=== PATIENT | female | born 1930 | race Caucasian/White ===

== ENCOUNTER 2021-03-18 13:09 | Inpatient (IN) | payer MEDICARE, OTHER ==
[~2021-03-18] VITALS: Ht 157.5 cm; Wt 70.0 kg
[2021-03-18] MEDS ORDERED: normal saline 1000ML IV soln IVB ONE (14:05)
[2021-03-18] MEDS ORDERED: ondansetron/PF 4mg/2ml inj IV ONE (14:05)
[2021-03-18] MEDS ORDERED: morphine 4 MG/ML inj SYRINge IV ONE (14:20)
[2021-03-18 14:38] LABS: BASOPHILS % (AUTO) 0.2 % (0-1); EOSINOPHILS % (AUTO) 0 % (0-6); HEMATOCRIT 41.9 % (35.0-45.0); LYMPHOCYTES # (AUTO) 0.6 X10'3 (1.1-4.8); LYMPHOCYTES % (AUTO) 3.5 % (21-51); MEAN CORPUSCULAR HEMOGLOBIN 30.7 PG (27.0-31.0); MEAN CORPUSCULAR HGB CONC 33.5 g/dL (33.0-36.5); MEAN CORPUSCULAR VOLUME 91.7 FL (78-98); MEAN PLATELET VOLUME 7.4 FL (7.4-10.4); MONOCYTES # (AUTO) 0.3 X10'3 (0-0.9); MONOCYTES % (AUTO) 1.9 % (2-12); NEUTROPHILS # (AUTO) 16.2 X10'3 (1.8-7.7); NEUTROPHILS % (AUTO) 94.4 % (42-75); PLATELET COUNT 420 X10'3 (140-440); RED BLOOD COUNT 4.57 X10'6 (4.20-5.60); RED CELL DISTRIBUTION WIDTH 13.8 % (11.5-14.5); WHITE BLOOD COUNT 17.2 X10'3 (4.5-11.0)
[2021-03-18 14:49] LABS: ALANINE AMINOTRANSFERASE 28 U/L (12-78); ALBUMIN 3.5 G/DL (3.4-5.0); ALBUMIN/GLOBULIN RATIO 0.9 (1.1-1.5); ALKALINE PHOSPHATASE 114 IU/L (46-116); ANION GAP 13 (8-16); ASPARTATE AMINO TRANSFERASE 23 U/L (10-37); BILIRUBIN,TOTAL 0.9 MG/DL (0.1-1.0); BLOOD UREA NITROGEN 21 MG/DL (7-18); BUN/CREATININE RATIO 20.8 (6.6-38.0); CALCIUM 11.3 MG/DL (8.5-10.1); CHLORIDE 101 MMOL/L (99-107); CREATININE 1.01 MG/DL (0.40-0.90); GLUCOSE 174 MG/DL (70-104); LIPASE 117 U/L (73-393); SODIUM 139 MMOL/L (135-145); TOTAL PROTEIN 7.3 G/DL (6.4-8.2); eGFR 52 ML/MIN
[2021-03-18 14:56] LABS: POTASSIUM 2.7 MMOL/L (3.5-5.1)
[2021-03-18] MEDS ORDERED: piperacillin/tazo 3.375gm/50ml 50 ML IV ONE (15:00)
[2021-03-18] MEDS ORDERED: iohexol 300mg/ml 100ml inj. ONE (15:11)
[2021-03-18] MEDS: potassium CL 10mEq/100ml bag 100 ML IV SCH ×2 (15:28→18:07)
--- NOTE | 2021-03-18 15:50 | NUR ---
PT TO CT SCAN VIA [facility]
[2021-03-18] MEDS ORDERED: glycopyrrolate 0.2mg/ml inj IV ONE (16:00)
[2021-03-18 16:53] LABS: C DIFF ANTIGEN POSITIVE (NEGATIVE); C DIFF SPECIMEN=DIARRHEA? ACCEPTABLE; C DIFFICILE TOXINS A&B POSITIVE (Neg)
[2021-03-18] MEDS ORDERED: vancomycin 125mg/5ml ORAL solution 5ml UD bottle PO ONE (17:44)
[2021-03-18] MEDS ORDERED: HYDROcodone/acetaminophen 5mg/325mg tablet PO PRN (18:20)
[2021-03-18] MEDS: potassium Cl 20mEq in NS 1,000 ML IV SCH (18:20)
[2021-03-18] MEDS ORDERED: acetaminophen 325mg tablet PO PRN ×2 (18:20)
[2021-03-18] MEDS ORDERED: ondansetron/PF 4mg/2ml inj IV PRN (18:20)
[2021-03-18] MEDS ORDERED: magnesium hydroxide 30ml (MOM) UD suspension PO PRN (18:20)
[2021-03-18] MEDS ORDERED: morphine 2 MG/ML inj. syringe IV PRN ×2 (18:20)
[2021-03-18] MEDS ORDERED: mag hydrox/Alum hydrox/simeth 30ml oral suspension PO PRN (18:20)
[2021-03-18] MEDS ORDERED: AMLO10TA13 PO (19:17)
[2021-03-18] MEDS ORDERED: ASPI-611 PO (19:17)
[2021-03-18] MEDS ORDERED: HYDR-4069 PO (19:17)
[2021-03-18] MEDS ORDERED: ATOR10TA70 PO (19:17)
[2021-03-18] MEDS ORDERED: ALBU18HF2 INH (19:17)
[2021-03-18] MEDS ORDERED: FLUT12AE4 IH (19:17)
[2021-03-18] MEDS ORDERED: FAMO20TA8 PO (19:17)
[2021-03-18] MEDS ORDERED: CALC-855 PO (19:17)
[2021-03-18] MEDS ORDERED: OMEP-50 PO (19:17)
[2021-03-18] MEDS ORDERED: MULT-1085 PO (19:24)
[2021-03-18 19:29] LABS: CLARITY,URINE CLEAR (Clear); COLOR,URINE DARK YELLOW (Yellow); PH,URINE 6.5 (4.8-8.0); UA COLLECTION TYPE URINAL
[2021-03-18 19:30] LABS: GLUCOSE, URINE NEGATIVE (Neg); KETONES,URINE NEGATIVE (Neg); LEUKOCYTE ESTERASE ,URINE TRACE (Neg); NITRITES, URINE NEGATIVE (Neg); OCCULT BLOOD,URINE TRACE-INTACT (Neg); PROTEIN,URINE TRACE mg/dl (Neg); UROBILINOGEN,URINE 0.2 E.U/dL (0.2-1.0)
[2021-03-18 19:31] LABS: BACTERIA,URINE FEW /HPF (Neg); SQUAMOUS EPITHELIAL CELL,UR FEW /LPF (FEW); WBC,URINE 0-4 /HPF (0-4)
[2021-03-18] MEDS: docusate sod 100mg capsule PO SCH (19:48)
--- NOTE | 2021-03-19 01:10 | NUR ---
PT SPO2 [id number]%.PLACED PT ON NC 2L. PT STATES WEARS CPAP AT HOME FOR SLEEP APNEA.
[2021-03-19 01:42] LABS: BASOPHILS % (AUTO) 0.1 % (0-1); EOSINOPHILS % (AUTO) 0 % (0-6); HEMATOCRIT 35.7 % (35.0-45.0); LYMPHOCYTES # (AUTO) 0.5 X10'3 (1.1-4.8); LYMPHOCYTES % (AUTO) 2.3 % (21-51); MEAN CORPUSCULAR HEMOGLOBIN 30.5 PG (27.0-31.0); MEAN CORPUSCULAR HGB CONC 33.7 g/dL (33.0-36.5); MEAN CORPUSCULAR VOLUME 90.5 FL (78-98); MEAN PLATELET VOLUME 7.1 FL (7.4-10.4); MONOCYTES # (AUTO) 1.5 X10'3 (0-0.9); MONOCYTES % (AUTO) 6.6 % (2-12); NEUTROPHILS # (AUTO) 20.5 X10'3 (1.8-7.7); PLATELET COUNT 352 X10'3 (140-440); RED BLOOD COUNT 3.94 X10'6 (4.20-5.60); RED CELL DISTRIBUTION WIDTH 13.9 % (11.5-14.5); WHITE BLOOD COUNT 22.5 X10'3 (4.5-11.0)
[2021-03-19 01:47] LABS: ALBUMIN 2.6 G/DL (3.4-5.0); ANION GAP 10 (8-16); BLOOD UREA NITROGEN 21 MG/DL (7-18); BUN/CREATININE RATIO 20.4 (6.6-38.0); CALCIUM 9.2 MG/DL (8.5-10.1); CHLORIDE 107 MMOL/L (99-107); CREATININE 1.03 MG/DL (0.40-0.90); GLUCOSE 129 MG/DL (70-104); POTASSIUM 3.7 MMOL/L (3.5-5.1); SODIUM 141 MMOL/L (135-145); TOTAL CARBON DIOXIDE 24.5 MMOL/L (24-32); eGFR 50 ML/MIN
[2021-03-19] MEDS: vancomycin 125mg/5ml ORAL solution 5ml UD bottle PO SCH ×3 (03:06→20:42)
[2021-03-19 03:49] LABS: PLATELET ESTIMATE NORMAL; TOTAL CELLS COUNTED 100
[2021-03-19] MEDS: potassium Cl 20mEq in NS 1,000 ML IV SCH ×2 (05:17→17:51)
[2021-03-19] MEDS: enoxaparin 40mg/0.4ml syringe SUBCUT SCH (11:10)
[2021-03-19] MEDS: docusate sod 100mg capsule PO SCH ×2 (11:10→20:00)
--- NOTE | 2021-03-19 12:48 | NUR ---
noe [phone]
--- NOTE | 2021-03-19 13:49 | NUR ---
PT INCONT OF LARGE LIQUID STOOL . PT WAS CLEANED, LINEN CHANGED.
[2021-03-19] MEDS: hydrALAZINE 25 MG tablet PO SCH ×2 (15:11→21:31)
--- NOTE | 2021-03-19 18:15 | NUR ---
UP TO COMMODE STOOL X1, MODERATED AMT WATERY BROWN.
--- NOTE | 2021-03-19 18:51 | NUR ---
PT VANCOMYCIN FOR 0800 AND 1400 REMAINS UNCHARTED. UNABLE TO CLARIFY WITH DAYSHIFT NURSE DUE TO NURSE LEAVING FOR THE DAY.
[2021-03-19] MEDS ORDERED: FLUTICASONE IH SCH (20:00)
[2021-03-19] MEDS ORDERED: SALMETEROL IH SCH (20:00)
[2021-03-19] MEDS: famotidine 20mg tablet PO SCH (20:42)
[2021-03-19] MEDS: lactobacillus rhamnosus 10,000 MMU CELLS/CAPSULE PO SCH (20:42)
--- NOTE | 2021-03-19 21:46 | NUR ---
pt given hs rx. pt with no needs. Dressing to right medial lower leg taken off and small ulceratea area noted with minimal drainage to dressing. Area cleaned and 2x2 dressing taped in place. Pt given warm blanket. Awaiting ipa.
--- NOTE | 2021-03-19 22:12 | NUR ---
PT WITH 2CM ULCERATED SHALLOW AREA TO THE RIGHT MEDIAL LOWER LEG. STATES KESHA MAN HAS BEEN DEALING WITH THES. REPORTS IT WAS SKIN CANCER AND IT WAS SURGICALLY REMOVED. SHE SEES WOUND CARE WEEKLY FOR MANAGEMENT AND DRESSING CHANGES. NEW DRESSING IN PLACE.
[2021-03-20] VITALS: BP 160/65
--- NOTE | 2021-03-20 | NUR ---
I have received report from MARCELLUS and had the opportunity to ask questions and assume patient care. RECEIVED PT FROM ER VIA [facility] FOLLOWING VERBAL REPORT. ASSUMED CARE OF PT WITH RN STUDENT BENI Cerrato
[2021-03-20] MEDS: vancomycin 125mg/5ml ORAL solution 5ml UD bottle PO SCH ×4 (02:06→21:04)
[2021-03-20] MEDS: potassium Cl 20mEq in NS 1,000 ML IV SCH ×3 (02:08→23:22)
--- NOTE | 2021-03-20 05:55 | NUR ---
Student documentation: I have reviewed and agree with all interventions, assessments performed and documented by BENI Florez Medication Administration: For this medication-pass time frame, all medication were reviewed, dispensed, administered and documented per hospital policy by BENI Cerrato
[2021-03-20 06:09] LABS: BASOPHILS % (AUTO) 0.2 % (0-1); EOSINOPHILS # (AUTO) 0.1 X10'3 (0-0.9); EOSINOPHILS % (AUTO) 0.4 % (0-6); HEMATOCRIT 33.5 % (35.0-45.0); HEMOGLOBIN 11.1 g/dl (12.0-16.0); LYMPHOCYTES # (AUTO) 1.2 X10'3 (1.1-4.8); LYMPHOCYTES % (AUTO) 8.9 % (21-51); MEAN CORPUSCULAR VOLUME 93.8 FL (78-98); MEAN PLATELET VOLUME 7.6 FL (7.4-10.4); MONOCYTES # (AUTO) 1.5 X10'3 (0-0.9); MONOCYTES % (AUTO) 10.7 % (2-12); NEUTROPHILS # (AUTO) 11.1 X10'3 (1.8-7.7); NEUTROPHILS % (AUTO) 79.8 % (42-75); PLATELET COUNT 319 X10'3 (140-440); RED BLOOD COUNT 3.57 X10'6 (4.20-5.60); RED CELL DISTRIBUTION WIDTH 14.4 % (11.5-14.5)
--- NOTE | 2021-03-20 06:21 | NUR ---
Problems reprioritized. Patient report given, questions answered & plan of care reviewed with ARI.
[2021-03-20 06:28] LABS: ALBUMIN 2.5 G/DL (3.4-5.0); ANION GAP 9 (8-16); BLOOD UREA NITROGEN 21 MG/DL (7-18); BUN/CREATININE RATIO 28.8 (6.6-38.0); CALCIUM 8.4 MG/DL (8.5-10.1); CHLORIDE 108 MMOL/L (99-107); CREATININE 0.73 MG/DL (0.40-0.90); GLUCOSE 87 MG/DL (70-104); POTASSIUM 3.8 MMOL/L (3.5-5.1); SODIUM 141 MMOL/L (135-145); TOTAL CARBON DIOXIDE 23.6 MMOL/L (24-32); eGFR 75 ML/MIN
--- NOTE | 2021-03-20 06:58 | NUR ---
Patient in room [facility]A. I have received report from MARIMAR QUINTERO & SUBHA BAZAN and had the opportunity to ask questions and assume patient care
[2021-03-20 08:00] VITALS: BP 147/70
[2021-03-20] MEDS: docusate sod 100mg capsule PO SCH ×2 (08:00→20:00)
[2021-03-20] MEDS ORDERED: VANC5VIA PO (09:18)
[2021-03-20] MEDS: enoxaparin 40mg/0.4ml syringe SUBCUT SCH (09:21)
[2021-03-20] MEDS: pantoprazole 40mg Tablet.DR PO SCH (09:21)
[2021-03-20] MEDS: calcium carbonate/vitamin D3 tablet PO SCH (09:21)
[2021-03-20] MEDS: multivitamins, therapeutics tablet PO SCH (09:21)
[2021-03-20] MEDS: atorvastatin 10mg tablet PO SCH (09:21)
[2021-03-20] MEDS: lactobacillus rhamnosus 10,000 MMU CELLS/CAPSULE PO SCH ×2 (09:22→21:03)
[2021-03-20] MEDS: aspirin 81mg, enteric-coated 1 TAB TABLET.DR PO SCH (09:22)
[2021-03-20] MEDS: amLODIPine 5mg tablet PO SCH (09:25)
[2021-03-20] MEDS: hydrALAZINE 25 MG tablet PO SCH ×3 (09:25→21:07)
[2021-03-20 11:00] VITALS: BP_SYST 148; BP_SYST 158; BP_SYST 161; BP_DIAS 100; BP_DIAS 61; BP_DIAS 72
--- NOTE | 2021-03-20 12:27 | NUR ---
Age screen: Pt admitted w/ diarrhea and abd pain w/ dx of C. Diff per EMR. Pt currently on full liquid diet w/ 25% of breakfast consumed today. No wt loss reported, no edema present. Per ERM, pt noted w/ 2 cm ulceration to R leg and pt states it was skin cancer that was removed and she currently sees Wound care weekly for it. Will continue to monitor for diet advancement. Addendum: 03/20/21 at [address] Amended: Links added.
--- NOTE | 2021-03-20 19:00 | NUR ---
Problems reprioritized. Patient report given, questions answered & plan of care reviewed with ELSA HUNTER RN.
--- NOTE | 2021-03-20 19:02 | NUR ---
Patient in room [facility]. I have received report from ARI MINAYA and had the opportunity to ask questions and assume patient care.
[2021-03-20 20:00] VITALS: BP 173/64
[2021-03-20] MEDS: famotidine 20mg tablet PO SCH (21:03)
[2021-03-20] MEDS ORDERED: guaiFENesin/codeine phos 10ml UD oral syrup PO PRN (21:30)
[2021-03-21] VITALS: BP 163/69
[2021-03-21] MEDS: vancomycin 125mg/5ml ORAL solution 5ml UD bottle PO SCH ×4 (02:35→20:24)
[2021-03-21] MEDS: potassium Cl 20mEq in NS 1,000 ML IV SCH ×2 (06:20→10:05)
--- NOTE | 2021-03-21 06:29 | NUR ---
Problems reprioritized. Patient report given, questions answered & plan of care reviewed with JADON RN.
--- NOTE | 2021-03-21 06:30 | NUR ---
Patient in room [facility]. I have received report from Nannette MINAYA and had the opportunity to ask questions and assume patient care.
[2021-03-21 07:05] LABS: ALBUMIN 2.8 G/DL (3.4-5.0); ANION GAP 11 (8-16); BLOOD UREA NITROGEN 11 MG/DL (7-18); BUN/CREATININE RATIO 17.2 (6.6-38.0); CALCIUM 8.6 MG/DL (8.5-10.1); CHLORIDE 107 MMOL/L (99-107); CREATININE 0.64 MG/DL (0.40-0.90); GLUCOSE 100 MG/DL (70-104); POTASSIUM 4.1 MMOL/L (3.5-5.1); SODIUM 138 MMOL/L (135-145); TOTAL CARBON DIOXIDE 20.1 MMOL/L (24-32); eGFR 87 ML/MIN
[2021-03-21 07:09] LABS: BASOPHILS % (AUTO) 0.2 % (0-1); EOSINOPHILS # (AUTO) 0.1 X10'3 (0-0.9); EOSINOPHILS % (AUTO) 0.8 % (0-6); HEMATOCRIT 33.7 % (35.0-45.0); HEMOGLOBIN 11.2 g/dl (12.0-16.0); LYMPHOCYTES # (AUTO) 1.1 X10'3 (1.1-4.8); LYMPHOCYTES % (AUTO) 7.5 % (21-51); MEAN CORPUSCULAR HEMOGLOBIN 30.8 PG (27.0-31.0); MEAN CORPUSCULAR HGB CONC 33.3 g/dL (33.0-36.5); MEAN CORPUSCULAR VOLUME 92.4 FL (78-98); MEAN PLATELET VOLUME 8.5 FL (7.4-10.4); MONOCYTES # (AUTO) 1.4 X10'3 (0-0.9); MONOCYTES % (AUTO) 9.6 % (2-12); NEUTROPHILS # (AUTO) 12.1 X10'3 (1.8-7.7); NEUTROPHILS % (AUTO) 81.9 % (42-75); PLATELET COUNT 290 X10'3 (140-440); RED BLOOD COUNT 3.65 X10'6 (4.20-5.60); RED CELL DISTRIBUTION WIDTH 14.6 % (11.5-14.5); WHITE BLOOD COUNT 14.7 X10'3 (4.5-11.0)
[2021-03-21 08:00] VITALS: BP 167/83
[2021-03-21] MEDS: docusate sod 100mg capsule PO SCH ×2 (08:00→20:00)
[2021-03-21] MEDS: pantoprazole 40mg Tablet.DR PO SCH (10:06)
[2021-03-21] MEDS: atorvastatin 10mg tablet PO SCH (10:06)
[2021-03-21] MEDS: calcium carbonate/vitamin D3 tablet PO SCH (10:07)
[2021-03-21] MEDS: hydrALAZINE 25 MG tablet PO SCH ×3 (10:07→20:38)
[2021-03-21] MEDS: lactobacillus rhamnosus 10,000 MMU CELLS/CAPSULE PO SCH ×2 (10:07→20:24)
[2021-03-21] MEDS: multivitamins, therapeutics tablet PO SCH (10:08)
[2021-03-21] MEDS: amLODIPine 5mg tablet PO SCH (10:10)
[2021-03-21] MEDS: enoxaparin 40mg/0.4ml syringe SUBCUT SCH (10:15)
[2021-03-21 11:00] VITALS: BP_SYST 116; BP_SYST 167; BP_DIAS 63; BP_DIAS 71
[2021-03-21 17:32] VITALS: BP_SYST 158; BP_SYST 168; BP_SYST 193; BP_DIAS 64; BP_DIAS 75; BP_DIAS 77
[2021-03-21 18:00] VITALS: BP 158/81
--- NOTE | 2021-03-21 18:55 | NUR ---
Patient in room [facility]. I have received report from Pio MINAYA and had the opportunity to ask questions and assume patient care.
--- NOTE | 2021-03-21 18:58 | NUR ---
Problems reprioritized. Patient report given, questions answered & plan of care reviewed with TRAM MINAYA.
[2021-03-21] MEDS: famotidine 20mg tablet PO SCH (20:24)
[2021-03-21] MEDS ORDERED: PERFLUTREN PROTEIN-A MICROSPHR (Optison) 0.22 MG/ML 3ML VIAL IV PRN (20:30)
[2021-03-21] MEDS ORDERED: furosemide 40mg/4ml inj IV ONE (20:35)
[2021-03-22] VITALS: BP_SYST 132; BP_SYST 154; BP_DIAS 57; BP_DIAS 75
[2021-03-22] MEDS: vancomycin 125mg/5ml ORAL solution 5ml UD bottle PO SCH ×3 (02:28→13:30)
[2021-03-22] MEDS ORDERED: guaiFENesin/codeine phos 10ml UD oral syrup PO PRN (04:50)
[2021-03-22 06:04] LABS: BASOPHILS % (AUTO) 0.3 % (0-1); EOSINOPHILS # (AUTO) 0.2 X10'3 (0-0.9); EOSINOPHILS % (AUTO) 2.5 % (0-6); HEMATOCRIT 32.3 % (35.0-45.0); HEMOGLOBIN 10.9 g/dl (12.0-16.0); LYMPHOCYTES # (AUTO) 1.4 X10'3 (1.1-4.8); LYMPHOCYTES % (AUTO) 18.5 % (21-51); MEAN CORPUSCULAR HEMOGLOBIN 30.7 PG (27.0-31.0); MEAN CORPUSCULAR HGB CONC 33.6 g/dL (33.0-36.5); MEAN CORPUSCULAR VOLUME 91.1 FL (78-98); MEAN PLATELET VOLUME 6.8 FL (7.4-10.4); MONOCYTES % (AUTO) 13.3 % (2-12); NEUTROPHILS # (AUTO) 4.8 X10'3 (1.8-7.7); NEUTROPHILS % (AUTO) 65.4 % (42-75); PLATELET COUNT 324 X10'3 (140-440); RED BLOOD COUNT 3.54 X10'6 (4.20-5.60); RED CELL DISTRIBUTION WIDTH 14.2 % (11.5-14.5); WHITE BLOOD COUNT 7.3 X10'3 (4.5-11.0)
[2021-03-22 06:11] LABS: ALBUMIN 2.5 G/DL (3.4-5.0); BLOOD UREA NITROGEN 6 MG/DL (7-18); BUN/CREATININE RATIO 9.1 (6.6-38.0); CALCIUM 8.2 MG/DL (8.5-10.1); CHLORIDE 104 MMOL/L (99-107); CREATININE 0.66 MG/DL (0.40-0.90); GLUCOSE 88 MG/DL (70-104); TOTAL CARBON DIOXIDE 25.3 MMOL/L (24-32); eGFR 84 ML/MIN
[2021-03-22 06:12] LABS: ANION GAP 8 (8-16); POTASSIUM 3.4 MMOL/L (3.5-5.1); SODIUM 137 MMOL/L (135-145)
--- NOTE | 2021-03-22 06:25 | NUR ---
Problems reprioritized. Patient report given, questions answered & plan of care reviewed with Pio RN.
--- NOTE | 2021-03-22 06:30 | NUR ---
Patient in room [facility]. I have received report from Kanchan MINAYA and had the opportunity to ask questions and assume patient care.
[2021-03-22] MEDS: docusate sod 100mg capsule PO SCH (08:00)
[2021-03-22] MEDS ORDERED: levoFLOXACIN-Levaquin 250mg/D5 50 ML IV SCH (08:00)
[2021-03-22] MEDS: lactobacillus rhamnosus 10,000 MMU CELLS/CAPSULE PO SCH (08:27)
[2021-03-22] MEDS: atorvastatin 10mg tablet PO SCH (08:27)
[2021-03-22] MEDS: amLODIPine 5mg tablet PO SCH (08:27)
[2021-03-22] MEDS: multivitamins, therapeutics tablet PO SCH (08:28)
[2021-03-22] MEDS: aspirin 81mg, enteric-coated 1 TAB TABLET.DR PO SCH (08:28)
[2021-03-22] MEDS: pantoprazole 40mg Tablet.DR PO SCH (08:28)
[2021-03-22] MEDS: calcium carbonate/vitamin D3 tablet PO SCH (08:28)
[2021-03-22] MEDS: hydrALAZINE 25 MG tablet PO SCH (08:28)
[2021-03-22] MEDS: enoxaparin 40mg/0.4ml syringe SUBCUT SCH (08:30)
[2021-03-22] MEDS ORDERED: LEVO500T89 PO (08:48)
[2021-03-22 11:03] VITALS: BP 185/79
[2021-03-22 12:00] VITALS: BP_SYST 146; BP_SYST 152; BP_DIAS 66; BP_DIAS 76
[2021-03-22 12:23] VITALS: BP 136/66
--- NOTE | 2021-03-22 18:42 | NUR ---
Patient discharged into the care of family, discharge was done with family in the room. Patient expressed verbal understanding of discharge teaching including the new medications and how to clean around house with cdiff. patient and family seemed responsive to teaching and was able to ask questions at this time. patient meds were called into local pharmacy and she was transported home in private vehicle.
== END 2021-03-22 13:40 | disposition home or self-care (01) | DRG 872 ==
LOC: ER 13:09 → ED HOLD 18:23 → SUR 3N 03-19 23:40
PROVIDERS: ADMIT Internal Medicine; ATTEND Internal Medicine
PROC: BW211ZZ Computerized Tomography (CT Scan) of Abdomen and Pelvis using Low Osmolar Contrast (ICD-10-PCS; principal; 2021-03-18)
DX: A41.9 Sepsis, unspecified organism (principal); A04.72 Enterocolitis due to Clostridium difficile, not specified as recurrent; E87.6 Hypokalemia; Z20.822 Contact with and (suspected) exposure to COVID-19; E78.5 Hyperlipidemia, unspecified; I35.0 Nonrheumatic aortic (valve) stenosis; I10 Essential (primary) hypertension; J20.9 Acute bronchitis, unspecified; K21.9 Gastro-esophageal reflux disease without esophagitis; K44.9 Diaphragmatic hernia without obstruction or gangrene; Z88.8 Allergy status to other drugs, medicaments and biological substances; Z88.2 Allergy status to sulfonamides; Z79.899 Other long term (current) drug therapy; Z79.82 Long term (current) use of aspirin
CPT/HCPCS: 36415; 71045; 74177; 80048; 80053; 81001; 83690; 84145; 85007; 85025; 87045; 87046; 87081; 87088; 87324; 87449; 87635; 93306; 99285; G0378; J1650; J1940; J1956; J2270; J2405; J2543; J3480; J3490; J7030; Q9967